=== PATIENT | female | born 1950 | race Two or more races ===

== ENCOUNTER → 2017-07-21 | Outpatient (CLI) | END | disposition home or self-care (01) ==

== ENCOUNTER → 2017-09-09 | Outpatient (CLI) | END | disposition home or self-care (01) ==

== ENCOUNTER 2017-09-10 07:07 | Inpatient (IN) | END 2017-09-12 16:15 | disposition home health service (06) | DRG 470 ==

== ENCOUNTER → 2017-09-23 | Outpatient (CLI) | END | disposition home or self-care (01) ==

== ENCOUNTER → 2017-10-21 | Outpatient (CLI) | END | disposition home or self-care (01) ==

== ENCOUNTER → 2017-12-09 | Outpatient (CLI) | END | disposition home or self-care (01) ==

== ENCOUNTER → 2018-03-10 | Outpatient (CLI) | END | disposition home or self-care (01) ==

== ENCOUNTER 2018-03-11 05:41 | Inpatient (IN) | END 2018-03-15 14:55 | disposition home health service (06) | DRG 470 ==

== ENCOUNTER → 2018-03-24 | Outpatient (CLI) | END | disposition home or self-care (01) ==

== ENCOUNTER 2018-04-03 10:34 | Inpatient (IN) | END 2018-04-04 16:37 | disposition home or self-care (01) | DRG 581 ==